=== PATIENT | female | born 1965 | race Caucasian/White ===

== ENCOUNTER 2022-03-08 08:32 | Outpatient (CLI) | payer BC, SELFPAY ==
--- OUTSIDE RECORDS SUMMARY | 2022-03-08 08:35 | XMS_ITS | Clinical Summary ---
:1965 Author Organization [employer] [facility] [place] [address] Care Team Providers Name Role Phone Saranya Servin STACY Primary Care Provider Allergies No known active allergies Medications Medication Sig Dispensed Refills Start Date End Date Status Calcium-Cholecalciferol, Take 1,200 mg by 0 Active D3, 600 mg(1,500mg) -400 mouth once unit chew daily. multivitamin capsule Take 1 Cap by 0 Active mouth once daily. Active Problems Not on file Family History Medical History Relation Name Comments Heart Disease Father Cervical cancer Maternal Aunt Diabetes Mother Heart Disease Mother Relation Name Status Comments Father Maternal Aunt Mother Social History Tobacco Use Types Packs/Day Years Used Date Never Smoker Smokeless Tobacco: Never Used Tobacco Cessation: Counseling Given: Yes Sex Assigned at Date Recorded Not on file Obstetrics History Last Filed Vital Signs Vital Sign Reading Time Taken Comments Blood Pressure 124/84 03/13/2019 4:04 PM ELEVATOR RUNNER tower Pulse 73 03/13/2019 4:04 PM ELEVATOR RUNNER Temperature - - Respiratory Rate - - Oxygen Saturation 100% 03/13/2019 4:04 PM ELEVATOR RUNNER Inhaled Oxygen Concentration - - Weight 50.8 kg (112 lb) 03/13/2019 4:04 PM ELEVATOR RUNNER Height - - Body Mass Index - - Plan of Treatment Health Maintenance Due Date Last Done Comments COVID-19 vaccine series (#1) 01/02/1964 Tdap 07/01/1974 Depression screening for age 12+ 1975 BMI (ht and wt on same day) for 07/01/1981 age 18+ Hepatitis C screening for age 0307/01/1981 18-79 Tetanus booster 1983 Colonoscopy through age 75 07/01/2008 Lipids for age 45-75 07/01/2008 Mammogram for age 45-75 07/01/2008 Zoster (shingles) series for age 0307/01/2013 50+ (1 of 2) Pap test for age 21-65 02/05/2020 02/04/2017, 02/04/2017, 10/26/2013, Additional history exists Influenza for age 50-64 12/17/2021 Results Not on filefrom Last 3 Months Insurance Payer Benefit Plan / Subscriber ID Effective Dates Phone Addre ss Type Group BLUE CROSS BLUE CROSS OF [id number] 2015-Present [address] [place] [address] Care Teams Track Fitter Relationship Specialty Start Date End Date Saranya Servin LPN PCP - General 03/13/19 [address] [place] [address]
[2022-03-08 13:32] LABS: Basophils Absolute Auto 0.05 K/uL (0.00-0.30); Eosinophils Absolute Auto 0.03 K/uL (0.00-0.50); Eosinophils Percent Auto 0.6 % (0.0-7.0); Hematocrit 45.1 % (33.0-51.0); Hemoglobin* 14.6 gm/dL (12.0-16.0); Immature Granulocytes Abs Auto 0.01 K/uL (0.00-0.30); Immature Granulocytes Pct Auto 0.2 %; Lymphocytes Absolute Auto 1.17 K/uL (0.90-2.90); Lymphocytes Percent Auto 22.3 % (20-44); Mean Corpuscular HGB Conc 32 gm/dL (32-36); Mean Corpuscular Hemoglobin 28 pg (26-34); Mean Corpuscular Volume 86 fL (80-100); Monocytes Percent Auto 7.4 % (0.0-11.0); Neutrophils Absolute Auto 3.59 K/uL (1.7-7.0); Neutrophils Percent Auto 68.5 % (42.0-72.0); Platelet Count* 280 K/uL (140-440); RDW Coefficient of Variation % 13.9 % (11.5-15.5); Red Blood Count 5.25 m/uL (4.00-5.20); White Blood Count* 5.24 K/uL (4.50-11.00)
[2022-03-08 14:04] LABS: Slide Review Reflex No
[2022-03-08 14:06] LABS: Cholesterol* 216 mg/dL (90-199)
[2022-03-08 14:07] LABS: Glucose* 91 mg/dL (60-115); HDL Cholesterol* 86 mg/dL (>=50); LDL Cholesterol Calculated 111 mg/dL (<100); Triglycerides* 97 mg/dL (40-149)
[2022-03-12 10:32] LABS: Vitamin D 25 Hydroxy* 49 ng/mL (30-80)
== END 2022-03-08 08:33 | disposition home or self-care (01) ==
PROVIDERS: PCP Family Medicine; Visit Provider Nurse Practitioner Family
DX: Z01.419 Encounter for gynecological examination (general) (routine) without abnormal findings (principal); R53.83 Other fatigue; Z13.1 Encounter for screening for diabetes mellitus; Z13.6 Encounter for screening for cardiovascular disorders
CPT/HCPCS: 80061; 82306; 82947; 85025; 87624; 88175

== ENCOUNTER 2022-03-09 15:22 | Outpatient (CLI) | payer BC, SELFPAY ==
--- OUTSIDE RECORDS SUMMARY | 2022-03-09 15:33 | XMS_ITS | Clinical Summary ---
:1965 Author Organization [employer] [facility] [place] [address] Care Team Providers Name Role Phone Saranya Servin STACY Primary Care Provider Allergies No known active allergies Medications Medication Sig Dispensed Refills Start Date End Date Status Calcium-Cholecalciferol, Take 1,200 mg by 0 Active D3, 600 mg(1,500mg) -400 mouth once unit chew daily. multivitamin capsule Take 1 Cap by 0 Active mouth once daily. Active Problems Not on file Encounters Date Type Specialty Care Team Description 03/09/2022 Lab Requisition Nicole Emery NP from Last 3 Months Family History Medical History Relation Name Comments [...] Comments Blood Pressure 124/84 03/13/2019 4:04 PM CHANNEL OPENER tower Pulse 73 03/13/2019 4:04 PM CHANNEL OPENER Temperature - - Respiratory Rate - - Oxygen Saturation 100% 03/13/2019 4:04 PM CHANNEL OPENER Inhaled Oxygen Concentration - - Weight 50.8 kg (112 lb) 03/13/2019 4:04 PM CHANNEL OPENER Height - - Body Mass Index - [...] Type Group BLUE CROSS BLUE CROSS OF [id number] 2015-Present [address] [place] [address] Care Teams Weatherization Field Technician Relationship Specialty Start Date End Date Saranya Servin, ANALYTICS DEVELOPER PCP - General 03/13/19 [facility] [place], [place] [id number]
--- NOTE | 2022-03-09 15:40 | CRLHL7_ITS ---
For Patients: As a result of the Century Cures Act, medical imaging exams and procedure reports are released immediately into your electronic medical record. You may view this report before your referring provider. If you have questions, please contact your health care provider. BILATERAL SCREENING MAMMOGRAM WITH COMPUTER-AIDED DETECTION AND TOMOSYNTHESIS TECHNIQUE: CC and MLO views were obtained. These mammographic images have been obtained using full-field digital technique. These mammographic images were interpreted with the benefit of computer-aided detection. Breast Tomosynthesis was used in this interpretation. COMPARISON FILM: 03/06/21, 03/03/20, 02/23/19. FINDINGS: The breasts are heterogeneously dense, which may obscure small masses IMPRESSION: There is no radiographic evidence for malignancy. ASSESSMENT: BI-RADS Category 1: Negative RECOMMENDATION: Routine screening mammogram in 1 year. A lay language report of this examination will be provided to the patient. John Carrasco M.D. Diagnostic Radiologist [email or web address] MURALI/Dictated by: John Carrasco MD @ 03/10/2022 12:46:00 PM (Electronically Signed)
== END 2022-03-09 15:23 | disposition home or self-care (01) ==
LOC: MAMMO 15:22
PROVIDERS: PCP Family Medicine; Visit Provider Nurse Practitioner Family
DX: Z12.31 Encounter for screening mammogram for malignant neoplasm of breast (principal); R92.2 Inconclusive mammogram
CPT/HCPCS: 77063; 77067

== ENCOUNTER 2022-04-02 08:39 | Outpatient (CLI) | payer BC, SELFPAY | END 2022-04-02 08:40 | disposition home or self-care (01) | LOC: OP CLINIC 08:40 | PROVIDERS: PCP Family Medicine; Visit Provider Internal Medicine | DX: Z12.11 Encounter for screening for malignant neoplasm of colon (principal); K64.8 Other hemorrhoids | CPT/HCPCS: 45378; J2250; J3010 ==

== ENCOUNTER 2022-04-21 07:38 | Outpatient (CLI) | payer BC, SELFPAY ==
--- NOTE | 2022-04-21 08:00 | CRLHL7_ITS ---
For Patients: As a result of the Century Cures Act, medical imaging exams and procedure reports are released immediately into your electronic medical record. You may view this report before your referring provider. If you have questions, please contact your health care provider. INDICATION: RIGHT NECK MASS COMPARISON: none TECHNIQUE: A CT volumetric acquisition was performed of the neck during intravenous infusion of 95 cc of Omnipaque-350 nonionic intravenous contrast. Please note that all CT scans at this facility use dose modulation, iterative reconstruction, and/or weight-based dosing when appropriate to reduce radiation dose to as low as reasonably achievable. FINDINGS: The CT images demonstrate normal aeration of the mastoid air cells and middle ear cavities. The paranasal sinuses are clear. The nasopharynx appears normal. The parotid and submandibular glands are of normal size and have uniform enhancement. The oropharynx appears normal. The valleculae, epiglottis, aryepiglottic folds and piriform sinuses appear normal. There is a normal appearance of the larynx and subglottic trachea. The thyroid gland is of normal size and has uniform density. There is no evidence of lymphadenopathy within the anterior and posterior cervical triangles or within the supraclavicular region. Osseous structures normal. Normal lung apices. IMPRESSION: Negative neck CT. Normal lymph node corresponding to the area palpable concern. Please note that all CT scans at this facility use dose modulation, iterative reconstruction, and/or weight-based dosing when appropriate to reduce radiation dose to as low as reasonably achievable. Dictated by John Carrasco MD @ 04/21/2022 9:33:11 AM (Electronically Signed)
== END 2022-04-21 07:39 | disposition home or self-care (01) ==
PROVIDERS: PCP Family Medicine; Visit Provider Otolaryngology
DX: R22.1 Localized swelling, mass and lump, neck (principal)
CPT/HCPCS: 70491; Q9967

== ENCOUNTER 2023-03-18 08:22 | Outpatient (CLI) | payer BC, SELFPAY | END 2023-03-18 08:23 | disposition home or self-care (01) | PROVIDERS: PCP Nurse Practitioner Family; Visit Provider Nurse Practitioner Family | DX: Z13.220 Encounter for screening for lipoid disorders (principal); Z13.1 Encounter for screening for diabetes mellitus | CPT/HCPCS: 80061; 82947 ==

== ENCOUNTER 2023-03-21 15:08 | Outpatient (CLI) | payer BC, SELFPAY ==
--- NOTE | 2023-03-21 15:20 | CRLHL7_ITS ---
For Patients: As a result of the Century Cures Act, medical imaging exams and procedure reports are released immediately into your electronic medical record. You may view this report before your referring provider. If you have questions, please contact your health care provider. BILATERAL SCREENING MAMMOGRAM WITH COMPUTER-AIDED DETECTION AND TOMOSYNTHESIS TECHNIQUE: CC and MLO views were obtained. These mammographic images have been obtained using full-field digital technique. These mammographic images were interpreted with the benefit of computer-aided detection. Breast tomosynthesis was used in this interpretation. COMPARISON FILM: 03/09/22, 03/06/21, 03/03/20. FINDINGS: The breasts are extremely dense, which lowers the sensitivity of mammography. IMPRESSION: There is no radiographic evidence for malignancy. ASSESSMENT: BI-RADS Category 1: Negative RECOMMENDATION: Routine screening mammogram in 1 year. A lay language report of this examination will be provided to the patient. JOHN HDZ M.D. Diagnostic Radiologist [email or web address] SHIVA/kan Transcribed: 03/22/2023, 2:[address]/Dictated by: John Hdz MD @ 03/22/2023 8:36:00 AM (Electronically Signed)
== END 2023-03-21 15:09 | disposition home or self-care (01) ==
LOC: MAMMO 15:09
PROVIDERS: PCP Nurse Practitioner Family; Visit Provider Nurse Practitioner Family
DX: Z12.31 Encounter for screening mammogram for malignant neoplasm of breast (principal); R92.2 Inconclusive mammogram
CPT/HCPCS: 77063; 77067

== ENCOUNTER 2023-04-21 15:16 | Outpatient (CLI) | payer BC, SELFPAY ==
--- NOTE | 2023-04-21 15:30 | CRLHL7_ITS ---
For Patients: As a result of the Century Cures Act, medical imaging exams and procedure reports are released immediately into your electronic medical record. You may view this report before your referring provider. If you have questions, please contact your health care provider. DXA BONE MINERAL DENSITY STUDY Reason for exam: Osteopenia. Current height (inches): 63.0 Weight (lbs.): 115.0 Menopause age: 43 Ethnicity: White 1. Have you had a previous hip or vertebral fracture? No. 2. Have you had any fractures during your adult life which did not result from significant trauma (e.g., auto accident)? No. 3. Did either of your parents have a hip fracture? No. 4. Do you smoke? No. 5. Have you ever taken Glucocorticoids? No. 6. Do you have rheumatoid arthritis? No. 7. Do you have secondary osteoporosis? No. 8. Do you drink 3 or more alcoholic drinks per day? No. 9. Are you being treated for osteoporosis? No. 10. Have you ever taken any of the following medications: Actonel, Evista, Fosamax, Miacalcin, Reclast, Boniva, Forteo, HRT (i.e., estrogen/hormone therapy), Protelos, Prolia, Vitamin D, Calcium, other ??? please specify. ANSWER: Yes; vitamin D, calcium. 11. Do you have any of the following medical conditions: Anorexia or bulimia, asthma or emphysema, end stage renal disease, hyperparathyroidism, any seizure disorders, cancer, inflammatory bowel diseases, hysterectomy, other ??? please specify. ANSWER: No. 12. What was your maximum height (inches)? 63. 13. Do you perform weightbearing exercise regularly? Yes. 14. Do you regularly consume dairy products? Yes. 15. Do you drink caffeinated beverages? Yes. 16. At what age did your period start? 10. 17. Are you premenopausal? No. 18. How many full-term pregnancies have you had? 2. 19. Have you ever missed your period for more than 6 months in a row (not including or menopause)? No. TECHNIQUE: Bone mineral density study was performed using the [employer]. FINDINGS: The results of the study expressed as bone mineral density (BMD) are as follows: Lumbar Spine L1 to L4: BMD: 0.900 g/cm2. T-score: -1.3. Z-score: 0.1. Neck Left: BMD: 0.596 g/cm2. T-score: -2.3. Z-score: -1.0. Right: BMD: 0.593 g/cm2. T-score: -2.3. Z-score: -1.0. Total Left: BMD: 0.777 g/cm2. T-score: -1.4. Z-score: -0.4. Right: BMD: 0.831 g/cm2. T-score: -0.9. Z-score: 0.0. IMPRESSION: Osteopenia. COMPARISON: Compared with scan of 03/04/2021, the bone mineral density has decreased by 1.5% at the spine and increased by 5.5% at the hip. Compared with scan of 02/20/2018, the bone mineral density has decreased by 7.7% at the spine and increased by 0.8% at the hip. *Comparison exams done prior to 09/2019 were performed on different unit, Ryla. FRAX 10-year Fracture Risk Major Osteoporotic Fracture: 9.2% Hip Fracture: 1.5% Reported Risk Factors: [place] () Neck BMD = 0.593, BMI = 20.4 JOHN HDZ M.D. Diagnostic Radiologist [email or web address] Transcribed: 7:[address]/Dictated by: John Hdz MD @ 04/21/2023 3:41:00 PM (Electronically Signed)
== END 2023-04-21 15:17 | disposition home or self-care (01) ==
LOC: RAD 15:17
PROVIDERS: PCP Nurse Practitioner Family; Visit Provider Nurse Practitioner Family
DX: M85.80 Other specified disorders of bone density and structure, unspecified site (principal); M85.89 Other specified disorders of bone density and structure, multiple sites
CPT/HCPCS: 77080

== ENCOUNTER 2024-03-19 08:16 | Outpatient (CLI) | payer BC, SELFPAY ==
--- OUTSIDE RECORDS SUMMARY | 2024-03-19 08:20 | XMS_ITS ---
Author Organization [facility] Address [address] [place] [address] Care Team Providers Care Certified Nurses Aide Name Role Phone Unavailable Unavailable Unavailable Surgery Details Not on file Complications Check Surgery Details section. Procedure Estimated Blood Loss Check Surgery Details section. Procedure Findings Check Surgery Details section. Procedure Specimens Taken Check Surgery Details section.
--- OUTSIDE RECORDS SUMMARY | 2024-03-19 08:20 | XMS_ITS | Clinical Summary ---
Author Organization [facility] Address [place], [place] [address] Care Team Providers Care Extrusion Utility Worker Name Role Phone Saranya Servin STACY Primary Care Provider + [phone] Allergies No known active allergies Medications Medication Sig Dispensed Refills Start Date End Date Status Calcium-Cholecalciferol , D3, 600 mg(1,500mg) -400 unit chew Take 1,200 mg by mouth once daily. Active multivitamin capsule Take 1 Cap by mouth once daily. Active Family History Medical History Relation Name Comments Heart Disease Father Cervical cancer Maternal Aunt Diabetes Mother Heart Disease Mother Relation Name Status Comments Father Maternal Aunt Mother Social History Tobacco Use Types Packs/Day Years Used Date Smoking Tobacco: Never Smokeless Tobacco: Never Tobacco Cessation:Counseling Given: Yes Sex and Gender Information Value Date Recorded Sex Assigned at Not on file Gender Identity Not on file Sexual Orientation Not on file Obstetrics History Last Filed Vital Signs Vital Sign Reading Time Taken Comments Blood Pressure 124/84 03/13/2019 4:04 PM STEERSMAN tow er Pulse 73 03/13/2019 4:04 PM STEERSMAN Temperature - - Respiratory Rate - - Oxygen Saturation 100% 03/13/2019 4:04 PM STEERSMAN Inhaled Oxygen Concentration - - Weight 50.8 kg (112 lb) 03/13/2019 4:04 PM STEERSMAN Height - - Body Mass Index - - Plan of Treatment Health Maintenance Due Date Last Done Comments Tdap 07/01/1974 Depression screening for age 12+ 1975 HIV for age 15-65 07/01/1978 BMI (ht and wt on same day) for age 18+ 07/01/1981 Hepatitis C screening for age 18-79 07/01/1981 Tetanus booster 1983 Colonoscopy through age 75 07/01/2008 Lipids for age 45-75 07/01/2008 Mammogram for age 45-75 07/01/2008 Zoster (shingles) series for age 50+ (1 of 2) 07/01/2013 COVID-19 vaccine series ( season) 2023 Influenza for age 50-64 12/18/2023 Pap test for age 21-65 03/08/2025 , 03/08/2022, 02/04/2017, Additional history exists Pneumococcal series for age 6-64 Aged Out No longer eligible based on patient's age to complete this topic Procedures Procedure Name Priority Date/Time Associated Diagnosis Comments HPV HIGH RISK Routine 03/08/2022 12:00 PM STEERSMAN from Last 3 Months or Most Recently Relevant to Health Maintenance Results * HPV HIGH RISK (03/08/2022 12:00 PM STEERSMAN) TYPE 16 Negative Negative 03/15/2022 11:40 AM STEERSMAN [facility] TYPE 18 Negative Negative 03/15/2022 11:40 AM STEERSMAN [facility] [employer] [facility] OTHER HIGH RISK TYPES Negative Negative 03/15/2022 11:40 AM STEERSMAN [facility] LAB[facility] Other (Cervical/Vagina l) 03/08/2022 12:00 PM STEERSMAN 03/09/2022 10:10 AM STEERSMAN Narrative [facility] - 03/15/2022 11:40 AM STEERSMAN HPV types 16, 18, 31, 33, 35, 39, 45, 51, 52, 56, 58, 59, 66 and 68 DNA were undetectable or below the pre-set threshold. Methodology: Juan Mumtaz 4800 HPV Test Nicole Emery NP MICROBIOLOGY [facility] [address] [place] [address], from Last 3 Months or Most Recently Relevant to Health Maintenance Care Teams Extrusion Utility Worker Relationship Specialty Start Date End Date Saranya Servin, SOUND EFFECTS SUPERVISOR [address] [place], [place] [id number] PCP - General 03/13/19
--- OUTSIDE RECORDS SUMMARY | 2024-03-19 08:20 | XMS_ITS | Referral Summary ---
Author Organization [facility] Address [address] [place] [address] Care Team Providers Care Ip/Mosaic Technician Name Role Phone Elsewhere, Pcp Primary Care Provider Unavailabl e Source Comments Patient records contain information from all sites at [facility]. For routine questions regarding patient records, call [phone] during business hours, M-F 8:00 AM - 5:00 PM Central Time. Record requests for emergency care only can be directed to [phone] at any time.[facility] Allergies No known active allergies Medications multivitamin capsule Take 1 capsule by mouth daily. Active aspirin [address] tablet Take 81 mg by mouth daily. Active omega-3 fatty acids-fish oil 300-1,000 mg capsule Take 2 g by mouth daily. Active calcium carbonate-vitam in D3 (CALCIUM 600 WITH VITAMIN D3) 600 mg(1,500mg) -400 unit tablet,chewable Chew 1,200 mg. Active Active Problems Problem Noted Date Diagnosed Date Scoliosis 07/29/2017 Pain Neck Social History Tobacco Use Types Packs/Day Years Used Date Smoking Tobacco: Never Smokeless Tobacco: Never Alcohol Use Standard Drinks/Week Comments Yes 3 (1 standard drink = 0.6 oz pur e alcohol) PHQ-2 Answer Date Recorded PHQ-2 Score 0 09/24/2018 Nutrition Answer Date Recorded Nutrition: EVOO Fat Source Unknown 06/19 Nutrition: Servings of Fruits/Vegetables per Day Not on file 06/19/2020 Dental Answer Date Recorded Dental: Regular Dentist Unknown 06/20/19 21 Comments Unknown Sex and Gender Information Value Date Recorded Sex Assigned at Female 12/02/2017 5:13 PM CDT Legal Sex Female 10:25 AM CAR SPOTTER Gender Identity Female 12/02/2017 5:13 PM CDT Sexual Orientation Straight 12/02/2017 5: 13 PM CDT Last Filed Vital Signs Vital Sign Reading Time Taken Comments Blood Pressure 122/74 03/29/2018 3:50 PM CAR SPOTTER Pulse 84 03/29/2018 3:50 PM CAR SPOTTER Temperature 36.7 C (98.1 F) 03/29/2018 3:50 PM CAR SPOTTER Respiratory Rate - - Oxygen Saturation 100% 07/29/2017 7:21 AM CDT Inhaled Oxygen Concentration - - Weight 51.5 kg (113 lb 8.6 oz) 03/29/2018 3:50 P M CAR SPOTTER Height 160.5 cm (5' 3.19) 03/29/2018 3:50 PM CS T Body Mass Index 19.99 03/29/2018 3:50 PM CAR SPOTTER Plan of Treatment Not on file Procedures Procedure Name Priority Date/Time Associated Diagnosis Comments OUTSIDE MG MAMMOGRAM Routine 07/12/2008 11:09 AM CDT from Last 3 Months or Most Recently Relevant to Health Maintenance Results * Outside MG Mammogram (07/12/2008 11:09 AM CDT) 07/12/2008 11:0 9 AM CDT Addenda Addendum by ProviderNicole M.D. on 07/12/2008 11:09 AM CDT ODM^^^MCR Digitized Mammogram 07/12/2008 11:09:32 Historical Provider IMG BI PROCEDURES Final Resu lt [facility] [address] [place] [address] from Last 3 Months or Most Recently Relevant to Health Maintenance Insurance [facility] Care Teams Ip/Mosaic Technician Relationship Specialty Start Date End Date Elsewhere, Pcp PCP - General Internal Medicine 11/14/19
--- OUTSIDE RECORDS SUMMARY | 2024-03-19 08:20 | XMS_ITS | Clinical Summary ---
Author Organization [facility] Address [address] [place] [address] Care Team Providers Care Central Lab Technician Name Role Phone Elsewhere, Pcp Primary Care Provider Unavailabl e Source Comments Patient records contain information from all sites at [facility]. For routine questions regarding patient records, call [phone] during business hours, M-F 8:00 AM - 5:00 PM Central Time. Record requests for emergency care only can be directed to [phone] at any time.[facility] Allergies No known active allergies Medications [...] PM CDT Legal Sex Female 10:25 AM BRANCH MECHANIC Gender Identity Female 12/02/2017 5:13 PM CDT Sexual Orientation Straight 12/02/2017 5: 13 PM CDT Last Filed Vital Signs Vital Sign Reading Time Taken Comments Blood Pressure 122/74 03/29/2018 3:50 PM BRANCH MECHANIC Pulse 84 03/29/2018 3:50 PM BRANCH MECHANIC Temperature 36.7 C (98.1 F) 03/29/2018 3:50 PM BRANCH MECHANIC Respiratory Rate - - Oxygen Saturation 100% 07/29/2017 7:21 AM CDT Inhaled Oxygen Concentration - - Weight 51.5 kg (113 lb 8.6 oz) 03/29/2018 3:50 PM BRANCH MECHANIC Height 160.5 cm (5' 3.19) 03/29/2018 3:50 PM CS T Body Mass Index 19.99 03/29/2018 3:50 PM BRANCH MECHANIC Plan of Treatment Health Maintenance Due Date Last Done Comments CT Colonography 1965 Cologuard 1965 Colonoscopy 1965 Colorectal Cancer Screening 1965 FIT 1965 Fasting Glucose for Diabetes Screening 1965 HIV Screening 1965 Hepatitis C Screening 1965 Lipid (Cholesterol) Screening 1965 Mammogram 07/12/2009 07/12/2008, 06/16/2007 Depression Screening (Annual PHQ-2) 04/18/2023 COVID-19 Vaccine ( season) 2023 03/18/2023, 04/03/2021, 08/22/2020, Additional history exists Influenza Vaccine (#1) 2024 , 03/05/2021, 02/29/2020, Additional history exists Cervical/Vaginal Cancer Screening 03/08/2025 03/08/2022 DTaP,Tdap,and Td Vaccines (3 - Td or Tdap) 02/28/2030 02/29/2020, 09/30/2006 Zoster Vaccines Completed 05/24/2019, 02/23/2019 Hepatitis B Vaccines Aged Out No long er eligible based on patient's age to complete this topic IPV Vaccines Aged Out No longer eligi ble based on patient's age to complete this topic Pneumococcal vaccine (0-64 years) Aged Out No longer eligible based on [...] AM CDT ODM^^^MCR Digitized Mammogram 07/12/2008 11:09:32 us Historical Provider IMG BI PROCEDURES Final Resu lt [facility] [address] [place] [address] from Last 3 Months or Most Recently Relevant to Health Maintenance Insurance [facility] Care Teams Central Lab Technician Relationship Specialty Start Date End Date Elsewhere, Pcp PCP - General Internal Medicine 11/14/19
== END 2024-03-19 08:17 | disposition home or self-care (01) ==
PROVIDERS: PCP Nurse Practitioner Family; Visit Provider Nurse Practitioner Family
DX: E78.5 Hyperlipidemia, unspecified (principal); Z13.0 Encounter for screening for diseases of the blood and blood-forming organs and certain disorders involving the immune mechanism; Z13.228 Encounter for screening for other metabolic disorders
CPT/HCPCS: 80053; 80061; 85025

== ENCOUNTER 2024-05-10 15:26 | Outpatient (CLI) | payer BC, SELFPAY ==
--- NOTE | 2024-05-10 15:40 | CRLHL7_ITS ---
For Patients: As a result of the Century Cures Act, medical imaging exams and procedure reports are released immediately into your electronic medical record. You may view this report before your referring provider. If you have questions, please contact your health care provider. BILATERAL SCREENING MAMMOGRAM WITH COMPUTER-AIDED DETECTION AND TOMOSYNTHESIS TECHNIQUE: CC and MLO views were obtained. These mammographic images have been obtained using full-field digital technique. These mammographic images were interpreted with the benefit of computer-aided detection. Breast Tomosynthesis was used in this interpretation. COMPARISON FILM: 03/21/23, 03/09/22, 03/06/21. FINDINGS: The breasts are heterogeneously dense, which may obscure small masses. IMPRESSION: There is no radiographic evidence for malignancy. ASSESSMENT: BI-RADS Category 1: Negative RECOMMENDATION: Routine screening mammogram in 1 year. A lay language report of this examination will be provided to the patient. John Carrasco M.D. Diagnostic Radiologist [email or web address] SP/Dictated by: John Carrasco MD @ 05/14/2024 9:57:00 AM (Electronically Signed)
== END 2024-05-10 15:27 | disposition home or self-care (01) ==
LOC: MAMMO 15:26
PROVIDERS: PCP Nurse Practitioner Family; Visit Provider Nurse Practitioner Family
DX: Z12.31 Encounter for screening mammogram for malignant neoplasm of breast (principal); R92.333 Mammographic heterogeneous density, bilateral breasts
CPT/HCPCS: 77063; 77067

== ENCOUNTER 2025-04-05 08:38 | Outpatient (CLI) | payer BC, SELFPAY | END 2025-04-05 08:39 | disposition home or self-care (01) | PROVIDERS: PCP Nurse Practitioner Family; Visit Provider Nurse Practitioner Family | DX: Z00.00 Encounter for general adult medical examination without abnormal findings (principal); Z13.21 Encounter for screening for nutritional disorder; Z13.0 Encounter for screening for diseases of the blood and blood-forming organs and certain disorders involving the immune mechanism | CPT/HCPCS: 80053; 80061; 82306; 85025 ==